=== PATIENT | male | born 1955 | race Caucasian/White ===

== ENCOUNTER → 2018-11-03 | Outpatient (CLI) | payer OTHER | LOC: GIMAGING 07:38 → EDSTATUS 15:46 | PROVIDERS: ATTEND Family Medicine | DX: M17.11 Unilateral primary osteoarthritis, right knee (principal); M25.461 Effusion, right knee | CPT/HCPCS: 73562-PO ==

== ENCOUNTER 2019-01-18 10:17 | Observation (INO) | payer OTHER | END 2019-01-20 13:45 | disposition home health service (06) | LOC: F3N 10:17 ==